=== PATIENT | male | born 1960 | race Caucasian/White ===

== ENCOUNTER 2021-05-28 13:35 | Emergency (ER) | payer OTHER ==
[2021-05-28 16:06] LABS: BASOPHIL 0.9 % (0-2); EOSINOPHIL 1.6 % (0-5); HCT 43.6 % (42.0-52.0); HGB 14.6 g/dl (13.2-18.0); LYMPHOCYTE 19.9 % (15-48); MCH 30.2 pg (25.0-31.0); MCHC 33.5 g/dL (32.0-36.0); MCV 90.1 fL (78.0-100.0); MONOCYTE 15.9 % (0-12); MPV 9.6 fL (6.0-9.5); NEUTROPHIL 61.6 % (41-80); NRBC 0; PLT 175 K/uL (150-400); RBC 4.84 M/uL (4.70-6.00); RDW 12.8 % (11.5-14.0); WBC 7.9 K/uL (4.0-10.5)
[2021-05-28 16:20] LABS: ALBUMIN 3.9 g/dL (3.4-5.0); BILIRUBIN - TOTAL 0.4 mg/dL (0.2-1.0); BUN/CREAT RATIO (CALC) 15.7 RATIO; CREATININE 0.83 mg/dL (0.67-1.17); GLOBULIN (CALCULATION) 3.6 g/dL; POTASSIUM 4.5 mmol/L (3.5-5.1); TOTAL PROTEIN 7.5 g/dL (6.4-8.2)
[2021-05-28] MEDS ORDERED: MOTRIN600 MG PO (18:17)
== END 2021-05-28 18:24 | disposition home or self-care (01) ==
LOC: FER 13:35
PROVIDERS: Physician Assistant
DX: R51.9 Headache, unspecified (principal)
CPT/HCPCS: 36415; 80053; 85025; 99284